=== PATIENT | male | born 1940 | race Caucasian/White ===

== ENCOUNTER 2016-09-15 20:37 | Inpatient (IN) | payer OTHER ==
[~2016-09-15] VITALS: Ht 172.7 cm; Wt 78.9 kg
[2016-09-15 20:41] VITALS: BP 136/80
[2016-09-15] MEDS ORDERED: SINEMET 25-1001 EAC1 PO (20:45)
[2016-09-15] MEDS ORDERED: LISINOPRIL10 MG PO (20:46)
[2016-09-15 22:10] LABS: URINE BILIRUBIN NEGATIVE (Negative); URINE BLOOD 3+ (Negative); URINE GLUCOSE-RANDOM* NEGATIVE (Negative); URINE KETONES NEGATIVE (Negative); URINE NITRITE NEGATIVE (Negative); URINE PROTEIN (DIPSTICK) 1+ (Negative); URINE UROBILINOGEN 0.2 E.U./dl (0.2-1.0)
[2016-09-15 22:12] LABS: URINE COLOR RED
[2016-09-15 22:18] LABS: URINE RBC >20 Many /HPF (0-2)
[2016-09-15 22:19] LABS: BACTERIA 1-9 Few /HPF (None Seen); CASTS None Seen /LPF (None Seen); CRYSTALS None Seen /LPF (None Seen); SQUAMOUS None Seen /LPF (0-3); URINE WBC 0-5 Rare /HPF (0-5)
[2016-09-15 23:32] LABS: ABSOLUTE NEUTROPHILS 4.4 thou/uL (1.4-8.2); BASOPHILS 0.1 % (0.0-2.0); HEMATOCRIT 37.2 % (42.0-52.0); HEMOGLOBIN 12.7 gm/dL (14.0-18.0); LYMPHOCYTES 21.3 % (24.0-44.0); MCH 33.2 pg (26.0-34.0); MCHC 34.1 g/dL (28.0-37.0); MCV 97.4 fL (80.0-100.0); MONOCYTES 8.6 % (1.0-8.0); PLATELET COUNT 209 thou/uL (150-400); RBC 3.81 mil/uL (4.50-6.00); RDW 13.6 % (10.5-14.5); WBC 6.4 thou/uL (4.0-11.0)
[2016-09-15 23:35] LABS: MANUAL DIFF NO
[2016-09-15 23:39] LABS: CREATININE 1.2 mg/dL (0.7-1.3); POTASSIUM 4.2 mmol/L (3.5-5.1)
[2016-09-15 23:46] LABS: PROTIME 10.7 Seconds (9.3-11.4)
[2016-09-16 00:27] VITALS: BP 136/69
[2016-09-16 00:40] VITALS: BP 107/83
[2016-09-16] MEDS ORDERED: PROSCAR 5MG TABL5 M1 PO (01:00)
[2016-09-16] MEDS ORDERED: SINEMET 25-1001 EAC1 PO (01:01)
[2016-09-16] MEDS ORDERED: FLOMAX0.4 MG PO (01:02)
[2016-09-16] MEDS ORDERED: PRAVACHOL20 MG PO (01:02)
[2016-09-16 04:20] VITALS: BP 153/67
[2016-09-16 07:10] LABS: HEMATOCRIT 35.4 % (42.0-52.0); HEMOGLOBIN 12.3 gm/dL (14.0-18.0); MCH 33.7 pg (26.0-34.0); MCHC 34.7 g/dL (28.0-37.0); MCV 96.9 fL (80.0-100.0); RBC 3.65 mil/uL (4.50-6.00); RDW 13.2 % (10.5-14.5)
[2016-09-16 07:20] VITALS: BP 139/82
[2016-09-16 07:47] LABS: CALCIUM 8.8 mg/dL (8.5-10.1); CREATININE 1.3 mg/dL (0.7-1.3); POTASSIUM 4.2 mmol/L (3.5-5.1)
[2016-09-16 12:09] LABS: HEMATOCRIT 36.3 % (42.0-52.0); HEMOGLOBIN 12.5 gm/dL (14.0-18.0)
[2016-09-16 15:45] VITALS: BP 144/82
[2016-09-16 18:22] LABS: HEMATOCRIT 35.8 % (42.0-52.0); HEMOGLOBIN 12.2 gm/dL (14.0-18.0)
[2016-09-16 20:00] VITALS: BP 100/79
[2016-09-17 04:00] VITALS: BP 109/70
[2016-09-17 04:14] LABS: ABSOLUTE NEUTROPHILS 7.7 thou/uL (1.4-8.2); BASOPHILS 0.1 % (0.0-2.0); EOSINOPHILS 0.4 % (0.0-3.0); HEMATOCRIT 33.9 % (42.0-52.0); HEMOGLOBIN 11.8 gm/dL (14.0-18.0); LYMPHOCYTES 10.6 % (24.0-44.0); MCH 33.7 pg (26.0-34.0); MCHC 34.7 g/dL (28.0-37.0); MCV 97.1 fL (80.0-100.0); MONOCYTES 10.2 % (1.0-8.0); PLATELET COUNT 184 thou/uL (150-400); POLYS 78.7 % (36.0-66.0); RBC 3.49 mil/uL (4.50-6.00); RDW 13.3 % (10.5-14.5); WBC 9.8 thou/uL (4.0-11.0)
[2016-09-17 04:15] LABS: MANUAL DIFF NO
[2016-09-17 07:44] VITALS: BP 109/69
[2016-09-17] MEDS ORDERED: MIRALAX17 GM PO (13:44)
[2016-09-17 14:15] VITALS: BP 109/69
[2016-09-17 20:22] VITALS: BP 109/69
== END 2016-09-17 14:55 | disposition home or self-care (01) | DRG 726 ==
LOC: ER 20:37 → 3N 22:24 → EROBS 22:24 → 3N 09-16 00:05
PROVIDERS: Emergency Medicine; Hospitalist; Nurse Practitioner Family; Physician Assistant
DX: N40.1 Benign prostatic hyperplasia with lower urinary tract symptoms (principal); R31.9 Hematuria, unspecified; I10 Essential (primary) hypertension; G20 Parkinson's disease; Z79.899 Other long term (current) drug therapy; Z88.8 Allergy status to other drugs, medicaments and biological substances
CPT/HCPCS: 10795

== ENCOUNTER 2021-03-25 13:00 | Inpatient (IN) | payer OTHER ==
[~2021-03-25] VITALS: Ht 170.2 cm; Wt 70.3 kg
--- NOTE | ~2021-03-25 | EMS ---
[facility] [address] [place] [address] EMS Patient Care Report Name: MADISON MICHELLE Room #: REG LETICIA Fuentes#: [id number] Admission: 03/25/21 Attend Phys: Discharge: Date of : 38 Report #: [id number] THIS REPORT FOR: //name// Report Transmitted: 03/25/2021 13:46 EMS Care Summary [place], [place]/[facility] Incident [id number] @ 03/25/2021 12:22 Incident Location [address] [place], [place] [id number] Patient MADISON MICHELLE Male, 80 Years 1940 Patient Address [address] [place] [id number] Chief Complaint back pain/fall Disposition Transported No Lights/[place] Dispatch Reason Falls Transported To [facility] Narrative caregiver came over to find pt lying on the tile floor in the entryway. he is a&o and states he tripped and fell and has been on the floor since around midnight. pt c/o back and hand pain. he states he struck his head, but no LOC and not on blood thinners. pt sister contacted and she req him be seen at [facility]. pt lifted to cot, transport w/o change. report to staff, rm 10 Initial Vitals @12:48P: 99,R: 20,BP: 129/69,Pain: 8/10,GCS: 15,SpO2: 97,Revised Trauma: 12, Assessments [facility] [address] [place] [address] EMS Patient Care Report Name: MADISON MICHELLE Room #: REG LETICIA Kearns.#: [id number] Admission: 03/25/21 Attend Phys: Discharge: Date of : 38 Report #: [id number] @12:31MENTAL:No Abnormalities,SKIN:No Abnormalities,HEENT:Head/Face: Other,LUNG SOUNDS:ABDOMEN:PELVIS//GI:EXTREMITIES:Right Arm: Other,PULSE:Radial: 2+ Normal,NEURO:No Abnormalities, Impression Injury Procedures @12:31 ALS Assessment Response: Unchanged @12:41 Stretcher Response: Unchanged Timeline 12:18,Call Received 12:18,Dispatch Notified 12:22,Dispatched 12:23,En Route 12:30,On Scene 12:31,At Patient 12:31,ALS Assessment,Response: Unchanged 12:41,Stretcher,Response: Unchanged 12:47,Depart Scene 12:48,BP: 129/69 M,PULSE: 99,RR: 20 R,SPO2: 97 Ox,ETCO2: ,BG: ,PAIN: 8,GCS: 15, 12:55,At Destination 13:21,Call Closed Disclaimer v1.1 Copyright 2021 [employer] This EMS Care Summary contains data elements from the applicable legal record (which may be displayed differently). It is designed to provide pertinent information for the following purposes: continuity of care, clinical quality, and state data reporting. The complete legal record is available to ED staff and administrators of the receiving hospital in [facility] Patient Tracker. All data is provided "as is."
--- NOTE | ~2021-03-25 | EMS ---
[facility] [address] [place] [address] EMS Patient Care Report Name: MADISON MICHELLE Room #: 445-P ADM IN M.R.#: [id number] Admission: 03/25/21 Attend Phys: Clem Jensen MD Discharge: Date of : 38 Report #: [id number] THIS REPORT FOR: //name// Report Transmitted: 03/27/2021 11:32 EMS Care Summary [place], [place]/[facility] Incident [id number] @ 03/25/2021 12:22 Incident Location [address] [place] [address] Patient MADISON MICHELLE Male, 80 Years 1940 Patient Address [address] [place] [address] Chief Complaint back pain/fall Disposition Transported No Lights/[place] Dispatch Reason Falls Transported To [facility] Narrative caregiver came over to find pt lying on the tile floor in the entryway. he is a&o and states he tripped and fell and has been on the floor since around midnight. pt c/o back and hand pain. he states he struck his head, but no LOC and not on blood thinners. pt sister contacted and she req him be seen at [facility]. pt lifted to cot, transport w/o change. report to staff, rm 10 Initial Vitals @12:48P: 99,R: 20,BP: 129/69,Pain: 8/10,GCS: 15,SpO2: 97,Revised Trauma: 12, Assessments [facility] [address] [place] [address] EMS Patient Care Report Name: MADISON MICHELLE Room #: 445-P ADM IN M.R.#: [id number] Admission: 03/25/21 Attend Phys: Clem Jensen MD Discharge: Date of : 38 Report #: [id number] @12:31MENTAL:No Abnormalities,SKIN:No Abnormalities,HEENT:Head/Face: Other,LUNG SOUNDS:ABDOMEN:PELVIS//GI:EXTREMITIES:Right Arm: Other,PULSE:Radial: 2+ Normal,NEURO:No Abnormalities, Impression Injury Procedures @12:31 ALS Assessment Response: Unchanged @12:41 Stretcher Response: Unchanged Timeline 12:18,Call Received 12:18,Dispatch Notified 12:22,Dispatched 12:23,En Route 12:30,On Scene 12:31,At Patient 12:31,ALS Assessment,Response: Unchanged 12:41,Stretcher,Response: Unchanged 12:47,Depart Scene 12:48,BP: 129/69 M,PULSE: 99,RR: 20 R,SPO2: 97 Ox,ETCO2: ,BG: ,PAIN: 8,GCS: 15, 12:55,At Destination 13:21,Call Closed Disclaimer v1.1 Copyright 2021 [employer] This EMS Care Summary contains data elements from the applicable legal record (which may be displayed differently). It is designed to provide pertinent information for the following purposes: continuity of care, clinical quality, and state data reporting. The complete legal record is available to ED staff and administrators of the receiving hospital in [facility]'s Patient Tracker. All data is provided "as is."
[2021-03-25 13:00] VITALS: BP 155/68
[~2021-03-25 13:00] MED LIST: FLOMAX0.4 MG PO; LISINOPRIL10 MG PO; MIRALAX17 GM PO; PRAVACHOL20 MG PO; PROSCAR 5MG TABL5 M1 PO; SINEMET 25-1001 EAC1 PO
[2021-03-25 13:27] LABS: HEMATOCRIT 39.1 % (42.0-52.0); HEMOGLOBIN 12.9 gm/dL (14.0-18.0); MCH 33.2 pg (26.0-34.0); MCV 100.7 fL (80.0-100.0); RBC 3.88 mil/uL (4.50-6.00); RDW 13.9 % (10.5-14.5); WBC 10.4 thou/uL (4.0-11.0)
[2021-03-25 13:33] LABS: URINE BILIRUBIN NEGATIVE (Negative); URINE BLOOD TRACE (Negative); URINE COLOR YELLOW; URINE GLUCOSE-RANDOM* NEGATIVE (Negative); URINE KETONES 1+ (Negative); URINE LEUKOCYTES-REFLEX NEGATIVE (Negative); URINE NITRITE-REFLEX NEGATIVE (Negative); URINE PROTEIN (DIPSTICK) 1+ (Negative); URINE SPECIFIC GRAVITY >= 1.030 (1.005-1.035); URINE UROBILINOGEN 0.2 E.U./dl (0.2-1.0)
[2021-03-25 13:36] LABS: URINE CLARITY SL HAZY
[2021-03-25 13:37] LABS: CALCIUM 9.5 mg/dL (8.5-10.1); CREATININE 1.5 mg/dL (0.7-1.3); POTASSIUM 4.3 mmol/L (3.5-5.1)
[2021-03-25 13:46] LABS: ALBUMIN 4.1 g/dL (3.4-5.0); TOTAL BILIRUBIN 0.9 mg/dL (0.2-1.0); TOTAL PROTEIN 7.5 g/dL (6.4-8.2)
[2021-03-25 13:48] LABS: SQUAMOUS 0-3 Few /LPF (0-3); URINE RBC 3-10 Few /HPF (NONE SEEN); URINE WBC-REFLEX 0-5 Rare /HPF (0-5)
[2021-03-25 13:49] LABS: CASTS None Seen /LPF (None Seen); CRYSTALS None Seen /LPF (None Seen)
[2021-03-25 17:09] VITALS: BP 135/82
[2021-03-25 17:11] VITALS: BP 125/68
--- NOTE | 2021-03-25 17:54 | NUR ---
ASSUMED CARE OF PT AT 1730 THIS AFTERMOOM FROM ED. PT IS A/OX4 WITH OCCASSIONAL CONFUSION AND FORGETFUL. COMPLETED ADMISSION HX, EDU AND SEPSIS. NIGHT RN WILL COMPLETE SYSTEMS ASSESSMENT AND CARE PLAN. FALL PRECAUTIONS ARE IN PLACE. CALL LIGHT AND OTHER NEEDS ARE IN REACH. MEDS AND TX GIVEN NEEDED AND SCHEDULED. WILL MONITOR AND NOTE ANY CHANGES.
[2021-03-25 19:58] VITALS: BP 127/82
[2021-03-25 21:30] LABS: FOLIC ACID 16.5 ng/mL (8.6-58.9)
--- NOTE | 2021-03-26 03:29 | NUR ---
RECEIVED CARE OF THIS PATIENT AT 1900. PATIENT ALERT AND ORIENTED X4. UP TO [facility] FOR BM'S. HAS MERA WITH TEA COLORED URINE. IV PATENT IN RAC WITH FLUIDS INFUSING. DENIES PAIN. SLEPT MOST OF THE NIGHT/
[2021-03-26 05:59] LABS: ABSOLUTE NEUTROPHILS 9.4 thou/uL (1.4-8.2); BASOPHILS 0.2 % (0.0-2.0); EOSINOPHILS 0.1 % (0.0-3.0); HEMATOCRIT 35.5 % (42.0-52.0); HEMOGLOBIN 11.8 gm/dL (14.0-18.0); LYMPHOCYTES 6.1 % (24.0-44.0); MCH 33.4 pg (26.0-34.0); MCHC 33.3 g/dL (28.0-37.0); MCV 100.4 fL (80.0-100.0); MONOCYTES 7.9 % (1.0-8.0); PLATELET COUNT 195 thou/uL (150-400); POLYS 85.7 % (36.0-66.0); RBC 3.53 mil/uL (4.50-6.00); RDW 13.9 % (10.5-14.5)
[2021-03-26 06:12] LABS: CALCIUM 8.8 mg/dL (8.5-10.1); CREATININE 1.1 mg/dL (0.7-1.3); MAGNESIUM 2.4 mg/dL (1.8-2.4); POTASSIUM 4.3 mmol/L (3.5-5.1)
[2021-03-26 11:37] VITALS: BP 111/73
[2021-03-26 16:47] VITALS: BP 109/67
--- NOTE | 2021-03-26 17:04 | NUR ---
Patient admits weakness, rhabdomyoolysis. Spoke with Ivonne at [facility]. She reports patient has 2 hours a day/7 days a week of private duty. This service funded through [facility] as patient is service connected. He has RN every 3 weeks and MOW. Patient was found down by [facility] care worker. Approx time possibly on floor 18 hours. Met and spoke with patient. he believes he is at "[facility] He reports his was at [facility]. [facility] below the [facility]. When showec patient no shelf he asked to put on other shelf, pointing to [facility]. Called [id number] Avelina. [phone](h) [phone](c). she reports only relative left for patient. Her spouse and his spouse have passes away. Avelina reports she is 79 years old and cannot assist with care. She reports patient liked [facility] and familiar and agreeable to referral to [facility]. Sp with Flori at [facility] transitions to alert patient admitted. [phone]. Therapy evals in process. Faxed referral to [facility] to review.
[2021-03-26 19:30] VITALS: BP 107/65
--- NOTE | 2021-03-27 02:45 | NUR ---
PT APPEARS FATIGUED THIS NOC. REFUSED DINNER WITH MULTIPLE ATTEMPTS. PATIENT IS PLEASANT AND COOPERATIVE. MEDICATIONS GIVEN PER MAR. DENIES C/O PAIN OR DISCOMFORT. SR ON THE MONITOR. FALL PRECUATIONS IN PLACE,CALL LIGHT IS WITHIN REACH.
[2021-03-27 04:30] VITALS: BP 123/65
[2021-03-27 07:45] VITALS: BP 110/66
[2021-03-27] MEDS ORDERED: ACETAMINOPHEN325 M1 PO (13:37)
[2021-03-27] MEDS ORDERED: PEPCID20 MG PO (13:38)
--- NOTE | 2021-03-27 14:36 | NUR ---
ASSUMED CARE OF PT AT 0700 THIS MORNING. PT HAS BEEN ADMITTED FOR FALL AND FAILURE TO THRIVE. PT WAS GIVEN COLON PREP FPR POSSIBLE OBSTRUCTION. PT HAD SEVERAL BM EPISODES. ASSESSMENTS NOTED IN CHART AND OTHERWISE UNREMARKABLE. 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 CALL LIGHT AND OTHER NEEDS ARE IN REACH. MEDS AND TX GIVEN AAS NEEDED AND SCHEDULED.
--- NOTE | 2021-03-27 16:20 | NUR ---
Patient accepted at [facility]. Plan dc today. Faxed orders and [id number]. Chart copied. Orders faxed. Patient completed poa naming [id number] as poa for health care. Dr Carrillo reports patient is competent to complete dpoa paperwork. Updated patient of dc to [facility] he is in agreement with plan. Transport at 1700 via [facility] van from [facility].
== END 2021-03-27 17:50 | DRG 557 ==
LOC: ER 13:00 → 4S 17:15 → EROBS 17:15 → 4S 17:24
PROVIDERS: Emergency Medicine; Nurse Practitioner; ADMIT Hospitalist; ATTEND Hospitalist
DX: M62.82 Rhabdomyolysis (principal); N17.0 Acute kidney failure with tubular necrosis; E87.2 Acidosis; M47.892 Other spondylosis, cervical region; K59.00 Constipation, unspecified; Z20.822 Contact with and (suspected) exposure to COVID-19; N40.0 Benign prostatic hyperplasia without lower urinary tract symptoms; I10 Essential (primary) hypertension; E86.0 Dehydration; M41.82 Other forms of scoliosis, cervical region; G20 Parkinson's disease; Z60.2 Problems related to living alone; R53.81 Other malaise; R29.6 Repeated falls; D53.9 Nutritional anemia, unspecified; Z88.6 Allergy status to analgesic agent; Z87.891 Personal history of nicotine dependence
CPT/HCPCS: 10100; 10195